=== PATIENT | male | born 1960 | race Caucasian/White ===

== ENCOUNTER → 2016-12-20 15:15 | Emergency (ER) | payer BC ==
[~2016-12-20 15:15] MED LIST: Diazepam TAB(*) 5 MG PO ONE; Ketorolac INJ* 60 MG/2 ML VIAL IM ONE
[2016-12-20 15:23] VITALS: BP 145/70
--- NOTE | 2016-12-20 17:17 | ED ---
Back Pain - HPI Summary HPI Summary: Patient presents with low back pain and muscle spasm after performing heavy lifting at home yesterday. He didn't have pain or symptoms at the time but when he awoke this morning he was uncomfortable and it became worse through the day. He tried Icy/Hot without relief. He denies incontinence of urine or stool, N/T or difficulty ambulating. - History of Current Complaint Chief Complaint: EDBackInjuryPain Stated Complaint: BACK INJURY Time Seen by Provider: 12/20/16 15:25 Hx Obtained From: Patient Onset/Duration: Gradual Onset Onset/Duration: Started Hours Ago Timing: Constant Back Pain Location: Is Discrete @ - low back Severity Initially: Mild Severity Currently: Severe Pain Intensity: 8 Character: Aching, Spasmodic, Stiffness Aggravating Symptom(s): Movement Alleviating Symptom(s): Nothing Associated Signs And Symptoms: Positive: Negative - Allergies/Home Medications Allergies/Adverse Reactions: Allergies Allergy/AdvReac Type Severity Reaction Status Date / Time Fluoxetine [From Prozac] Allergy PASSED Verified 06/01/16 14:40 OUT/DIFFICULTY BREATHING PMH/Surg Hx/FS Hx/Imm Hx Endocrine/Hematology History: Denies: Hx Diabetes Cardiovascular History: Reports: Hx Hypertension Denies: Hx Pacemaker/ICD History: Denies: Hx Renal Disease Musculoskeletal History: Reports: Other Musculoskeletal History - chronic neck pain Sensory History: Denies: Hx Hearing Aid Neurological History: Reports: Hx Migraine Psychiatric History: Denies: Hx Panic Disorder - Surgical History Surgery Procedure, Year, and Place: appendectomy, tonsillectomy, left inguinal hernia repair. DEVIATED SEPTUM AND SINUS Infectious Disease History: No Infectious Disease History: Denies: Traveled Outside the [place] in Last 30 Days - Family History Known Family History: Positive: Diabetes, Other - thyroid problems - Social History Occupation: Employed Full-time Lives: With Family Alcohol Use: Rare Substance Use Type: Reports: None Smoking Status (MU): Former Smoker Review of Systems Positive: Myalgia. Negative: Edema Negative: Paresthesia, Numbness All Other Systems Reviewed And Are Negative: Yes Physical Exam Triage Information Reviewed: Yes Vital Signs On Initial Exam: Initial Vitals Temp Pulse Resp BP Pulse Ox 97.8 F 67 20 145/70 98 12/20/16 15:21 12/20/16 15:21 12/20/16 15:21 12/20/16 15:21 12/20/16 15:21 Vital Signs Reviewed: Yes Appearance: Positive: Well-Appearing, Pain Distress, Obese Skin: Positive: Warm, Skin Color Reflects Adequate Perfusion, Dry, Cold, Soft Head/Face: Positive: Normal Head/Face Inspection Eyes: Positive: EOMI, JADEN, Conjunctiva Clear ENT: Positive: Hearing grossly normal Neck: Positive: Supple, Nontender Respiratory/Lung Sounds: Positive: Breath Sounds Present Cardiovascular: Positive: RRR Musculoskeletal: Positive: Limited @ - +left SLR, Pain @ - TTP right lumbar spinal muscles Neurological: Positive: Sensory/Motor Intact, Alert, Oriented to Person Place, Time, NV Bundle Intact Distally, Abnormal Gait Psychiatric: Positive: Affect/Mood Appropriate AVPU Assessment: Alert Diagnostics - Vital Signs Vital Signs Temp Pulse Resp BP Pulse Ox 12/20/16 16:10 16 12/20/16 15:23 97.9 F 67 20 145/70 100 12/20/16 15:21 97.8 F 67 20 145/70 98 - Laboratory Lab Statement: Any lab studies that have been ordered have been reviewed, and results considered in the medical decision making process. Re-Evaluation - Re-Evaluation First Eval Re-Evaluation Time: 12:40 Change: Improved Comment: pain decreased Back Pain Course/Dx - Diagnoses Differential Diagnosis/HQI/PQRI: Positive: Cauda Equina Syndrome, Fracture, Herniated Disc, Strain, Sprain Provider Diagnoses: Low back strain Discharge - Discharge Plan Condition: Stable Disposition: HOME Prescriptions: Diazepam TAB(*) [Valium TAB(*)] 5 mg PO TID PRN #15 tab MDD 3 PRN Reason: Pain Ibuprofen TAB* [Motrin TAB* 600 MG] 600 mg PO Q6H #30 tab Patient Education Materials: Acute Low Back Pain (ED) Forms: *Work Release Referrals: Santiago Holder MD [Primary Care Provider] - Additional Instructions: Please use the medication provided, with rest and heat or ice as needed. Begin using ibuprofen 600mg three times daily with meals tomorrow at lunch. Follow-up with your primary care provider if your symptoms do not begin to improve in the next 3-5 days. Return to the emergency department if symptoms worsen.
== END | disposition home or self-care (01) ==
LOC: ED 15:15
DX: S39.012A Strain of muscle, fascia and tendon of lower back, initial encounter (principal); M54.5 Low back pain; Z87.891 Personal history of nicotine dependence; X58.XXXA Exposure to other specified factors, initial encounter; Y93.9 Activity, unspecified; Y92.9 Unspecified place or not applicable
CPT/HCPCS: 96372; 99282; A9270-GY; J1885

== ENCOUNTER 2018-01-20 16:54 | Emergency (ER) | payer SELFPAY ==
[2018-01-20] MEDS ORDERED: HYDROcodone/ACETAMIN 5-325 MG* 1 TAB PO ONE (18:04)
--- NOTE | 2018-01-20 19:10 | RAD ---
INDICATION: Trauma, hip pain. COMPARISON: There are no prior studies available for comparison. TECHNIQUE: An AP view of the pelvis and frontal and lateral views of both hips were obtained. FINDINGS: The bones are normal alignment. No fracture is seen. Joint spaces appear maintained. IMPRESSION: NO EVIDENCE FOR FRACTURE, IF THE PATIENT'S SYMPTOMS PERSIST RECOMMEND FOLLOW-UP IMAGING.
--- NOTE | 2018-01-20 19:14 | RAD ---
INDICATION: Trauma, back pain. COMPARISON: Comparison is made with a prior study from January 10, 2018. TECHNIQUE: 5 views of the lumbar spine were obtained including lateral, oblique, AP and a coned-down lateral view of the lumbar sacral junction. FINDINGS: There is anterolisthesis of L5 on S1 of approximately 8 mm which appears unchanged consistent with grade 1 anterior spondylolisthesis. There is spondylolysis at the L5 level which is also unchanged. No acute fracture is seen. There is mild diffuse degenerative disc disease. IMPRESSION: 1. GRADE 1 ANTERIOR SPONDYLOLISTHESIS AT THE L5-S1 LEVEL AND BILATERAL SPONDYLOLYSIS AT THE L5 LEVEL. 2. MILD DIFFUSE DEGENERATIVE DISC DISEASE.
--- NOTE | 2018-01-20 19:30 | ED ---
Back Pain - HPI Summary HPI Summary: Patient complains of bilateral lower back pain and bilateral hip pain/P mechanical fall today at 3:30 PM. Patient slipped in water on concrete. History of chronic left lower back pain and left hip pain, with with worsening of left side symptoms after fall, and new symptoms of right side pain. Denies head injury, LOC, vision change, N/V, neck pain, back, chest wall pain, abdominal pain, pain in bilateral lower extremities, bilateral upper extremities , urinary retention, incontinence, loss of sensation or function distally in lower extremity is.. Patient states he is due for MRI of left lower back and left hip pain. Patient unsure of current diagnoses for left lower back and left hip pain. No anti-coag. - History of Current Complaint Chief Complaint: EDBackInjuryPain Stated Complaint: FALL Time Seen by Provider: 01/20/18 17:26 Hx Obtained From: Patient Onset/Duration: Sudden Onset Timing: Constant Severity Initially: Severe Severity Currently: Severe Pain Intensity: 10 Pain Scale Used: 0-10 Numeric Character: Sharp Aggravating Symptom(s): Movement, Walking Alleviating Symptom(s): Position Associated Signs And Symptoms: Positive: Negative - Allergies/Home Medications Allergies/Adverse Reactions: Allergies Allergy/AdvReac Type Severity Reaction Status Date / Time fluoxetine [From Prozac] Allergy Unknown Verified 01/20/18 16:57 Reaction Details PMH/Surg Hx/FS Hx/Imm Hx Endocrine/Hematology History: Denies: Hx Anticoagulant Therapy, Hx Diabetes Cardiovascular History: Reports: Hx Hypertension Denies: Hx Pacemaker/ICD History: Denies: Hx Dialysis, Hx Renal Disease Musculoskeletal History: Reports: Other Musculoskeletal History - chronic neck pain Sensory History: Denies: Hx Hearing Aid Neurological History: Reports: Hx Migraine Denies: Hx CVA Psychiatric History: Denies: Hx Panic Disorder - Surgical History Surgery Procedure, Year, and Place: appendectomy, tonsillectomy, left inguinal hernia repair. DEVIATED SEPTUM AND SINUS Infectious Disease History: No Infectious Disease History: Denies: Traveled Outside the [place] in Last 30 Days - Family History Known Family History: Positive: Diabetes, Other - thyroid problems - Social History Alcohol Use: Rare Substance Use Type: Reports: None Smoking Status (MU): Former Smoker Review of Systems Constitutional: Negative Eyes: Negative ENT: Negative Cardiovascular: Negative Respiratory: Negative Gastrointestinal: Negative Genitourinary: Negative Positive: Arthralgia, Myalgia Positive: Bruising Neurological: Negative Psychological: Normal All Other Systems Reviewed And Are Negative: Yes Physical Exam - Summary Physical Exam Summary: PMS intact distally in both lower extremities. No evidence of ecchymosis, swelling, erythema, extra warmth, mass in lower back bilaterally or lower hips. Patient able to flex and extend bilateral hips, knees and ankles. Triage Information Reviewed: Yes Vital Signs On Initial Exam: Initial Vitals Temp Pulse Resp BP Pulse Ox 98.7 F 80 16 128/90 97 01/20/18 16:55 01/20/18 16:55 01/20/18 16:55 01/20/18 16:55 01/20/18 16:55 Vital Signs Reviewed: Yes Appearance: Positive: Well-Appearing Skin: Positive: Warm Head/Face: Positive: Normal Head/Face Inspection Eyes: Positive: Normal Neck: Positive: Supple Respiratory/Lung Sounds: Positive: Clear to Auscultation Cardiovascular: Positive: Normal Abdomen Description: Positive: Nontender Musculoskeletal: Positive: Normal Neurological: Positive: Normal Psychiatric: Positive: Normal AVPU Assessment: Alert - Isael Coma Scale Best Eye Response: 4 - Spontaneous Best Motor Response: 6 - Obeys Commands Best Verbal Response: 5 - Oriented Coma Scale Total: 15 Diagnostics - Vital Signs Vital Signs Temp Pulse Resp BP Pulse Ox 01/20/18 16:55 98.7 F 80 16 128/90 97 - Laboratory Lab Statement: Any lab studies that have been ordered have been reviewed, and results considered in the medical decision making process. - Radiology lumbar Xray Interpretation: No Acute Changes Radiology Interpretation Completed By: Radiologist hips bilaterally Xray Interpretation: No Acute Changes Radiology Interpretation Completed By: Radiologist Back Pain Course/Dx - Course Course Of Treatment: Patient complains of bilateral lower back pain and bilateral hip pain/P mechanical fall today at 3:30 PM. Patient slipped in water on concrete. History of chronic left lower back pain and left hip pain, with with worsening of left side symptoms after fall, and new symptoms of right side pain. Denies head injury, LOC, vision change, N/V, neck pain, back, chest wall pain, abdominal pain, pain in bilateral lower extremities, bilateral upper extremities, urinary retention, incontinence, loss of sensation or function distally in lower extremity is.. Patient states he is due for MRI of left lower back and left hip pain. Patient unsure of current diagnoses for left lower back and left hip pain. No anti-coag. PMS intact distally in both lower extremities. No evidence of ecchymosis, swelling, erythema, extra warmth, mass in lower back bilaterally or lower hips. Patient able to flex and extend bilateral hips, knees and ankles. Follow-up with primary care. Ibuprofen for pain. - Diagnoses Provider Diagnoses: Fall Discharge - Sign-Out/Discharge Documenting (check all that apply): Patient Departure - Discharge Plan Condition: Stable Disposition: HOME Patient Education Materials: Low Back Strain (ED), Acute Low Back Pain (ED) Referrals: Santiago Holder MD [Primary Care Provider] - Additional Instructions: Follow-up with primary care. Return to the ED for any new or worsening symptoms - Billing Disposition and Condition Condition: STABLE Disposition: Home
[2018-01-20 19:55] VITALS: BP 117/82
== END 2018-01-20 19:56 | disposition home or self-care (01) ==
LOC: ED 16:54
DX: M54.5 Low back pain (principal); M25.552 Pain in left hip; M25.551 Pain in right hip; W01.0XXA Fall on same level from slipping, tripping and stumbling without subsequent striking against object, initial encounter; Y92.9 Unspecified place or not applicable; G89.29 Other chronic pain; M43.17 Spondylolisthesis, lumbosacral region; M51.36 Other intervertebral disc degeneration, lumbar region; Z88.8 Allergy status to other drugs, medicaments and biological substances; Z87.891 Personal history of nicotine dependence
CPT/HCPCS: 72110; 73523; 99282

== ENCOUNTER 2019-07-02 17:19 | Emergency (ER) | payer BC ==
--- NOTE | 2019-07-02 18:24 | ED ---
Lower Extremity - HPI Summary HPI Summary: Patient complains of right ankle pain status post mechanical fall at 5:15 AM this morning. Patient has been working on his feet all day long with persistent pain. Denies any other pain, injury or symptoms. - History of Current Complaint Chief Complaint: EDExtremityLower Stated Complaint: FALL PER PT Time Seen by Provider: 07/02/19 18:21 Hx Obtained From: Patient Mechanism Of Injury: Twisted Onset of Pain: Immediate Onset/Duration: Hours Severity Initially: Moderate Severity Currently: Moderate Pain Intensity: 5 Pain Scale Used: 0-10 Numeric Timing: Constant Location: Is Discrete @ Character Of Pain: Dull, Aching, Throbbing Associated Signs And Symptoms: Positive: Swelling Aggravating Factor(s): Standing, Ambulation, Weight Bearing Alleviating Factor(s): Rest, Elevation Able to Bear Weight: Yes - Allergies/Home Medications Allergies/Adverse Reactions: Allergies Allergy/AdvReac Type Severity Reaction Status Date / Time fluoxetine [From Prozac] AdvReac Severe See Comment Verified 07/02/19 17:34 PMH/Surg Hx/FS Hx/Imm Hx Endocrine/Hematology History: Denies: Hx Anticoagulant Therapy, Hx Diabetes Cardiovascular History: Reports: Hx Hypertension Denies: Hx Pacemaker/ICD Respiratory History: Denies: Hx Asthma History: Denies: Hx Dialysis, Hx Renal Disease Musculoskeletal History: Reports: Other Musculoskeletal History - chronic neck pain Sensory History: Denies: Hx Hearing Aid Opthamlomology History: Denies: Hx Legally Blind EENT History: Denies: Hx Deafness Neurological History: Reports: Hx Migraine Denies: Hx CVA Psychiatric History: Denies: Hx Panic Disorder - Surgical History Surgery Procedure, Year, and Place: appendectomy, tonsillectomy, left inguinal hernia repair. DEVIATED SEPTUM AND SINUS Infectious Disease History: No Infectious Disease History: Denies: Traveled Outside the [place] in Last 30 Days - Family History Known Family History: Positive: Diabetes, Other - thyroid problems - Social History Alcohol Use: Rare Substance Use Type: Reports: None Smoking Status (MU): Former Smoker Review of Systems Constitutional: Negative Eyes: Negative ENT: Negative Cardiovascular: Negative Respiratory: Negative Gastrointestinal: Negative Genitourinary: Negative Musculoskeletal: Other Skin: Negative Neurological: Negative Psychological: Normal All Other Systems Reviewed And Are Negative: Yes Physical Exam - Summary Physical Exam Summary: Mild swelling to right ankle. Mild pain with palpation over the lateral malleolus. No ecchymosis, erythema, deformity noted. PMS intact distally. No pain with palpation of foot or calf. Triage Information Reviewed: Yes Vital Signs On Initial Exam: Initial Vitals Temp Pulse Resp BP Pulse Ox 98.2 F 71 16 132/77 96 07/02/19 17:29 07/02/19 17:29 07/02/19 17:29 07/02/19 17:29 07/02/19 17:29 Vital Signs Reviewed: Yes Appearance: Positive: Well-Appearing Skin: Positive: Warm Head/Face: Positive: Normal Head/Face Inspection Eyes: Positive: Normal Neck: Positive: Supple Respiratory/Lung Sounds: Positive: Clear to Auscultation Cardiovascular: Positive: Normal Abdomen Description: Positive: Nontender Musculoskeletal: Positive: Normal Neurological: Positive: Normal Psychiatric: Positive: Normal AVPU Assessment: Alert - Isabella Coma Scale Best Eye Response: 4 - Spontaneous Best Motor Response: 6 - Obeys Commands Best Verbal Response: 5 - Oriented Coma Scale Total: 15 Procedures - Sedation Patient Received Moderate/Deep Sedation with Procedure: No Diagnostics - Vital Signs Vital Signs Temp Pulse Resp BP Pulse Ox 07/02/19 17:29 98.2 F 71 16 132/77 96 - Laboratory Lab Statement: Any lab studies that have been ordered have been reviewed, and results considered in the medical decision making process. Lower Extremity Course/Dx - Course Course Of Treatment: Patient complains of right ankle pain status post mechanical fall at 5:15 AM this morning. Patient has been working on his feet all day long with persistent pain. Denies any other pain, injury or symptoms. Vital signs within normal limits. X-ray right ankle negative for fracture. Ankle gel brace applied by nurse. - Diagnoses Provider Diagnoses: Right ankle sprain Discharge ED - Sign-Out/Discharge Documenting (check all that apply): Patient Departure - Discharge Plan Condition: Stable Disposition: HOME Patient Education Materials: Ankle Sprain (ED), Ankle Stirrup Splint (ED) Referrals: Jaswant Madrigal MD [Primary Care Provider] - Nash Adkins MD [Medical Doctor] - Additional Instructions: Ice 15 minutes at a time. Weightbearing as tolerated. Alternate ibuprofen and Tylenol every 3 hours for pain. If symptoms persist more than 1 week follow-up with orthopedics Dr. Adkins for further evaluation. - Billing Disposition and Condition Condition: STABLE Disposition: Home
[2019-07-02 20:42] VITALS: BP 142/80
== END 2019-07-02 20:35 | disposition home or self-care (01) ==
LOC: ED 17:19
DX: S93.401A Sprain of unspecified ligament of right ankle, initial encounter (principal); W19.XXXA Unspecified fall, initial encounter; Y92.9 Unspecified place or not applicable; I10 Essential (primary) hypertension; Z87.891 Personal history of nicotine dependence; Z90.89 Acquired absence of other organs; Z88.8 Allergy status to other drugs, medicaments and biological substances
CPT/HCPCS: 99282